=== PATIENT | male | born 1965 | race Caucasian/White ===

== ENCOUNTER 2025-04-29 21:05 | Emergency (ER) | payer BC, SELFPAY ==
[2025-04-29 21:15] VITALS: BP 110/64; PULSE 56; RESP 16; TEMP 36.6; O2SAT 94
--- NOTE | 2025-04-29 22:32 | ED.GENADUL_ITS ---
Discharge Plan Disposition Patient Disposition: Home Condition: Stable Discharge Details Clinical Impression: Dermatitis due to plants, including poison sharla, sumac, and oak Primary Care Provider: Adelina Avila ED Provider: Betsy Dueñas Home Meds and New Rx's Prescriptions: New prednisone 10 mg tablet 10 mg PO DIRECTED Qty: 54 0RF Rx Instructions: 60mg daily x4 days, 40mg daily x 4 days, 20mg daily x 4 days, 10mg daily x 4 days, 10 mg every other day x4 days cetirizine [Zyrtec] 10 mg tablet 10 mg PO DAILY PRNQty: 20 0RF Zanfel Cleanser 1 applic topical ONCE Qty: 30 0RF No Action pramipexole [Mirapex] 1 mg tablet 1 mg PO QHS sertraline [Zoloft] 100 mg tablet 150 mg PO DAILY ibuprofen 200 mg tablet 400 mg PO DAILY PRN fluticasone propionate [Flonase Allergy Relief] 50 mcg/actuation spray,suspension 2 spray intranasal DAILY PRN Rx Instructions: administer into each nostril gabapentin 300 mg capsule 600 mg PO QHS gabapentin 100 mg capsule 200 mg PO BID Rx Instructions: AM and noon HPI General Date/Time Provider Initiated Documentation: 04/29/25 21:30 . HPI Narrative: 60-year-old male with history of Gilbert's syndrome presents for evaluation of itchy rash. Patient noted rash on his left forearm and arm earlier tonight. There were some red spots that turned into small vesicles. There was some fluid. The rash has spread up his left arm and is starting onto his right arm. It is also on his left flank. He denies any known exposure to poison sharla, poison oak, poison sumac. He has not taken any new medications. He states that the rash is very itchy. He has put a steroid cream on it as well as calamine lotion. He continues to feel itchy. He has not taken any oral antihistamines. He has never had a rash like this in the past. Related Data Home Medications ?Medication ?Instructions ?Recorded ?Confirmed pramipexole 1 mg tablet (Mirapex) 1 mg PO QHS 07/22/22 04/29/25 fluticasone propionate 50 2 spray intranasal DAILY PRN 01/20/23 04/29/25 mcg/actuation nasal spray,suspension (Flonase Allergy Relief) ibuprofen 200 mg tablet 400 mg PO DAILY PRN 01/20/23 04/29/25 gabapentin 100 mg capsule 200 mg PO BID 05/02/2404/29 gabapentin 300 mg capsule 600 mg PO QHS 05/02/2404/29 sertraline 100 mg tablet (Zoloft) 150 mg PO DAILY 0810/2504/29/25 cetirizine 10 mg tablet (Zyrtec) 10 mg PO DAILY PRN #2 0 tabs 04/29/25 prednisone 10 mg tablet 10 mg PO DIRECTED #54 tab s 04/29/25 skin cleanser combination no.8 1 applic topical ONCE # 30 grams 04/29/25 (Zanfel topical cleanser) Previous Rx's ?Medication ?Instructions ?Recorded cetirizine 10 mg tablet (Zyrtec) 10 mg PO DAILY PRN #2 0 tabs 04/29/25 prednisone 10 mg tablet 10 mg PO DIRECTED #54 tab s 04/29/25 skin cleanser combination no.8 1 applic topical ONCE # 30 grams 04/29/25 (Zanfel topical cleanser) Allergies Allergy/AdvReac Type Severity Reaction Status Date / Time acetaminophen Allergy Intermediate high Verified 04/29/25 21:26 bilirubin General Stated Complaint: RashLesion DENISE: 4 Review of Systems Narrative: Remainder of review of systems otherwise negative except for as noted in the HPI x 5. Exam Narrative Exam Narrative: General: non-toxic, no respiratory distress, comfortable HEENT: normocephalic, atraumatic, lids and lashes normal, PERRL, EOMI, anicteric sclera, no conjunctival injection, moist oral mucosa Musculoskeletal: full range of motion of arms and legs, no tenderness to palpation. no clubbing, cyanosis, or edema Neurologic: appropriate for age, strength normal Psych: alert and oriented Skin: Small erythematous lesions to left arm, left flank, large amount of calamine lotion on top, otherwise no petechiae, no lesions, warm and dry Course Vital Signs Vital signs: Vital Signs Temperature 36.6 C 04/29/25 21:15 Pulse 56 L 04/29/25 21:15 Respiratory Rate 16 04/29/25 21:15 Blood Pressure 110/64 04/29/25 21:15 Pulse Oximetry 94 04/29/25 21:15 Temperature 36.6 C 04/29/25 21:15 Temperature Source Oral 04/29/25 21:15 Pulse 56 L 04/29/25 21:15 Respiratory Rate 16 04/29/25 21:15 Blood Pressure 110/64 04/29/25 21:15 Blood Pressure Position Sitting 04/29/25 21:15 Pulse Oximetry 94 04/29/25 21:15 Oxygen Delivery Method Room Air 04/29/25 21:15 Oxygen Flow Rate 0 04/29/25 21:15 Medical Decision Making 60-year-old male with history of Gilbert's syndrome presents for evaluation of itchy rash. Patient has a large amount of calamine lotion over the area at this time. I was able to look at some pictures of the rash before the calamine lotion was applied. There are very small erythematous spots. He did have several vesicular lesions that developed and fluid did get released from them. Despite patient not having exposure to any known poison sharla, poison oak, poison sumac this rash does appear to be most consistent with allergic dermatitis secondary to 1 of those. The rash is not consistent with shingles, bedbugs, chickenpox. I do feel that patient would benefit from oral antihistamine. He will be started on Zyrtec. Given the amount of surface area and continued spreading will start on prednisone. He is also given a prescription for Zanfel. I have recommended keeping the area covered so that the vesicular lesions should they pop do not get fluid elsewhere. There are no signs of secondary infection at this time. Patient understands indications to return. Quality:SDOH Health Related Social Needs: Health related social needs details none PFSH All Active Problems Dermatitis due to plants, including poison sharla, sumac, and oak (Acute) Gilbert syndrome (Chronic) Biopsy confirmed Generalized anxiety disorder (Chronic) PTSD (post-traumatic stress disorder) (Chronic) Restless legs syndrome (RLS) (Chronic) Chronic sinusitis (Chronic) Left rotator cuff tear (Chronic) Chronic left shoulder pain (Chronic) Chronic pain of right knee (Chronic) Insomnia (Chronic) Chronic low back pain (Chronic) Leg cramps (Chronic) Cigarette smoker (Chronic) LDCT annually at the [facility] Surgical History S/P nasal septoplasty (~1980) S/P right rotator cuff repair S/P right knee surgery Bone spur removal S/P excision of lipoma Right forearm History of nasal surgery (~1995) bone spur removal Family History Mother Breast cancer Father , 82 Heart disease Myocardial infarction Sister Acute myeloid leukemia Brother No problems noted. Brother Hyperlipidemia Brother Diabetes Son No problems noted. Son No problems noted. Maternal Grandfather No problems noted. Maternal Grandmother No problems noted. Paternal Grandfather No problems noted. Paternal Grandmother No problems noted. Social History Smoking/Tobacco Use Status: Current-Occasional Second Hand Exposure: Yes Smoking risk assessment performed?: Yes Alcohol Intake: former Year quit: 2016 Drug use: Daily Substance use type: marijuana Details: use for back pain Household members: spouse Communication Needs: None Pets and animals: Yes Pets and animals: dog(s) and bird(s) Sexually active: Yes Do you think of yourself as: straight/heterosexual Current gender identity: male What is your relationship status?: How often do you talk on the phone with friends or family?: three or more times per week How often do you get together with friends or relatives?: once per week How often do you attend scientology or anabaptist services?: decline to answer Do you belong to any clubs or organized social groups?: no Panel score (0-1 are the most socially isolated patients): 2 What type of physical activity do you participate in: walking Frequency: daily Mariya/Methodist: Sabianist Special mariya needs: No Seatbelt use: always Helmet use: No Drive intox or ride w/intox haul driver: No
[2025-04-29] MEDS: Cetirizine 10 MG TAB PO (22:50)
[2025-04-29] MEDS: predniSONE 20 MG TAB 60 MG PO (22:50)
== END 2025-04-29 22:55 | disposition home or self-care (01) ==
PROVIDERS: Emergency Provider Emergency Medicine Emergency Medical Services; PCP Nurse Practitioner Family
DX: L25.5 Unspecified contact dermatitis due to plants, except food (principal)
CPT/HCPCS: 99283 ×2; J7512